=== PATIENT | female | born 1960 | race Caucasian/White ===

== ENCOUNTER 2022-12-06 15:47 | Inpatient (IN) | payer OTHER ==
[2022-12-06] MEDS ORDERED: Ketorolac 30 MG/ML SDV IVPUSH PRN (15:58)
[2022-12-06] MEDS ORDERED: Doxycycline 100 MG in Sodium Chloride 0.9% 100 ML IV SCH (16:00)
[2022-12-06 17:03] LABS: LACTIC ACID 2.1 mmol/L (0.4-2.0)
[2022-12-06] MEDS: Sodium Chloride 0.9% 10 ML Syringe FLUSH PRN (17:10)
[2022-12-06] MEDS: Sodium Chloride 0.9% 1,000 ML IV SCH (17:10)
[2022-12-06] MEDS: Doxycycline 100 MG in Sodium Chloride 0.9% 100 ML IV SCH (17:33)
[2022-12-06] MEDS: Enoxaparin 40 MG/0.4 ML Syringe SUBCUT SCH (17:33)
[2022-12-06] MEDS: Acetaminophen 325 MG Tab PO PRN ×2 (17:42→22:29)
[2022-12-07] MEDS: Sodium Chloride 0.9% 1,000 ML IV SCH (02:24)
[2022-12-07] MEDS: Acetaminophen 325 MG Tab PO PRN ×2 (03:39→09:15)
[2022-12-07] MEDS: Doxycycline 100 MG in Sodium Chloride 0.9% 100 ML IV SCH ×2 (06:25→18:30)
[2022-12-07] MEDS: Pantoprazole 20 MG Tab, Delayed Release PO SCH (06:31)
[2022-12-07 06:41] LABS: HEMOGLOBIN 12.5 g/dL (11.4-15.5); MEAN CORPUSCULAR HEMOGLOBIN 33.3 pg (23.9-33.9); MEAN CORPUSCULAR HGB CONC 33.8 g/dL (31.9-34.8); MEAN CORPUSCULAR VOLUME 98.3 fL (76.7-100.5); MEAN PLATELET VOLUME 8.2 fL (7.1-12.4); PLATELET COUNT,PLT 223 x10(3)uL (151-488); RED BLOOD CELL COUNT 3.76 x10(6)uL (3.60-5.20); RED CELL DISTRIBUTION WIDTH 13.4 % (12.3-16.5); WHITE BLOOD CELL COUNT,WBC 18.1 x10-3/uL (3.0-10.3)
[2022-12-07 06:49] LABS: BLOOD UREA NITROGEN,BUN 15 mg/dL (7-18); CALCIUM 8.5 mg/dL (8.6-10.2); CARBON DIOXIDE,CO2 25 mmol/L (21-32); CHLORIDE,CL 101 mmol/L (100-110); EST CRCL DRUG DOSING (CG) 51.14 mL/min; ESTIMATED GFR 63 mL/min (>60); GLUCOSE RANDOM 149 mg/dL (80-116); POTASSIUM,K 3.5 mmol/L (3.5-5.3); SODIUM,NA 136 mmol/L (135-145)
[2022-12-07 07:15] LABS: BAND PERCENT MAN 7 % (0-6); LYMPHOCYTES PERCENT MAN 8 % (13-37); MONOCYTES PERCENT MAN 3 % (4-12); SEG NEUTROPHILS PERCENT MAN 82 % (46-82)
[2022-12-07] MEDS: Ibuprofen 400 MG Tab PO PRN ×4 (08:13→22:39)
[2022-12-07] MEDS: Pravastatin 20 MG Tab PO SCH (08:22)
[2022-12-07] MEDS: Folic Acid 1 MG Tab PO SCH (08:22)
[2022-12-07] MEDS: Enoxaparin 40 MG/0.4 ML Syringe SUBCUT SCH (16:02)
[2022-12-07] MEDS: Sodium Chloride 0.9% 10 ML Syringe FLUSH PRN ×2 (16:05→18:30)
[2022-12-08] MEDS: Sodium Chloride 0.9% 10 ML Syringe FLUSH PRN ×4 (06:00→22:11)
[2022-12-08] MEDS: Doxycycline 100 MG in Sodium Chloride 0.9% 100 ML IV SCH (06:02)
[2022-12-08] MEDS: Ibuprofen 400 MG Tab PO PRN ×2 (06:27→10:27)
[2022-12-08 06:53] LABS: BASOPHILS ABSOLUTE AUTO 0.1 x10-3/uL (0.0-0.1); BASOPHILS PERCENT AUTO 0.4 % (0.2-1.5); EOSINOPHILS ABSOLUTE AUTO 0.2 x10-3/uL (0.0-0.8); EOSINOPHILS PERCENT AUTO 1.3 % (0.6-8.1); HEMOGLOBIN 12.6 g/dL (11.4-15.5); LYMPHOCYTES ABSOLUTE AUTO 0.9 x10-3/uL (1.0-4.4); LYMPHOCYTES PERCENT AUTO 7.1 % (18.4-52.1); MEAN CORPUSCULAR HEMOGLOBIN 33.6 pg (23.9-33.9); MEAN CORPUSCULAR HGB CONC 34.1 g/dL (31.9-34.8); MEAN CORPUSCULAR VOLUME 98.5 fL (76.7-100.5); MEAN PLATELET VOLUME 8.5 fL (7.1-12.4); MONOCYTES ABSOLUTE AUTO 0.8 x10-3/uL (0.3-1.0); NEUTROPHILS PERCENT AUTO 85.2 % (30.8-76.2); PLATELET COUNT,PLT 210 x10(3)uL (151-488); RED BLOOD CELL COUNT 3.76 x10(6)uL (3.60-5.20); RED CELL DISTRIBUTION WIDTH 13.3 % (12.3-16.5); WHITE BLOOD CELL COUNT,WBC 12.9 x10-3/uL (3.0-10.3)
[2022-12-08 07:01] LABS: BLOOD UREA NITROGEN,BUN 12 mg/dL (7-18); BUN/CREATININE RATIO 13.3 (9-20); CALCIUM 9.1 mg/dL (8.6-10.2); CARBON DIOXIDE,CO2 25 mmol/L (21-32); CHLORIDE,CL 105 mmol/L (100-110); CREATININE 0.9 mg/dL (0.55-1.02); EST CRCL DRUG DOSING (CG) 56.82 mL/min; ESTIMATED GFR 71 mL/min (>60); GLUCOSE RANDOM 141 mg/dL (80-116); POTASSIUM,K 3.5 mmol/L (3.5-5.3); SODIUM,NA 141 mmol/L (135-145)
[2022-12-08] MEDS: Pantoprazole 20 MG Tab, Delayed Release PO SCH (07:45)
[2022-12-08] MEDS: Folic Acid 1 MG Tab PO SCH (08:29)
[2022-12-08] MEDS: Pravastatin 20 MG Tab PO SCH (08:29)
[2022-12-08] MEDS: cefTRIAXone 1 GM Vial IVPUSH SCH ×2 (11:04→22:03)
[2022-12-08] MEDS: Acetaminophen 325 MG Tab PO PRN (12:44)
[2022-12-08] MEDS: Saccharomyces Boulardii (Probiotic) 250 MG Cap PO SCH ×2 (13:39→20:04)
[2022-12-08] MEDS: oxyCODONE 5 MG Tab PO PRN ×2 (13:39→22:29)
[2022-12-08] MEDS: Enoxaparin 40 MG/0.4 ML Syringe SUBCUT SCH (15:39)
[2022-12-08] MEDS ORDERED: Iopamidol 755 Mg/ML 100 ML Bottle IV ONE (16:43)
[2022-12-08] MEDS: Ibuprofen 800 MG Tab PO PRN (19:54)
[2022-12-09] MEDS: Sodium Chloride 0.9% 10 ML Syringe FLUSH PRN ×4 (03:30→22:25)
[2022-12-09] MEDS: oxyCODONE 5 MG Tab PO PRN ×2 (03:35→15:45)
[2022-12-09] MEDS: Pantoprazole 20 MG Tab, Delayed Release PO SCH (06:38)
[2022-12-09 06:50] LABS: BASOPHILS PERCENT AUTO 0.2 % (0.2-1.5); EOSINOPHILS ABSOLUTE AUTO 0.6 x10-3/uL (0.0-0.8); EOSINOPHILS PERCENT AUTO 4.5 % (0.6-8.1); HEMATOCRIT 34.7 % (34.2-48.2); HEMOGLOBIN 11.8 g/dL (11.4-15.5); LYMPHOCYTES ABSOLUTE AUTO 1.2 x10-3/uL (1.0-4.4); LYMPHOCYTES PERCENT AUTO 8.8 % (18.4-52.1); MEAN CORPUSCULAR HEMOGLOBIN 33.4 pg (23.9-33.9); MEAN CORPUSCULAR HGB CONC 34.1 g/dL (31.9-34.8); MEAN CORPUSCULAR VOLUME 97.9 fL (76.7-100.5); MEAN PLATELET VOLUME 8.1 fL (7.1-12.4); MONOCYTES ABSOLUTE AUTO 1.2 x10-3/uL (0.3-1.0); MONOCYTES PERCENT AUTO 8.6 % (4.4-15.7); NEUTROPHILS ABSOLUTE AUTO 10.4 x10-3/uL (1.5-6.3); NEUTROPHILS PERCENT AUTO 77.9 % (30.8-76.2); PLATELET COUNT,PLT 220 x10(3)uL (151-488); RED BLOOD CELL COUNT 3.54 x10(6)uL (3.60-5.20); RED CELL DISTRIBUTION WIDTH 13.7 % (12.3-16.5); WHITE BLOOD CELL COUNT,WBC 13.4 x10-3/uL (3.0-10.3)
[2022-12-09] MEDS: Folic Acid 1 MG Tab PO SCH (08:30)
[2022-12-09] MEDS: Saccharomyces Boulardii (Probiotic) 250 MG Cap PO SCH ×2 (08:30→21:03)
[2022-12-09] MEDS: Pravastatin 20 MG Tab PO SCH (08:31)
[2022-12-09] MEDS: Ibuprofen 800 MG Tab PO PRN ×2 (09:00→22:55)
[2022-12-09] MEDS: cefTRIAXone 1 GM Vial IVPUSH SCH ×2 (10:43→22:20)
[2022-12-09] MEDS: Cetirizine 10 MG Tab PO SCH (10:47)
[2022-12-09] MEDS: Enoxaparin 40 MG/0.4 ML Syringe SUBCUT SCH (15:46)
[2022-12-09] MEDS: Acetaminophen 325 MG Tab PO PRN (18:50)
[2022-12-10] MEDS: Acetaminophen 325 MG Tab PO PRN ×2 (03:12→22:22)
[2022-12-10] MEDS: Sodium Chloride 0.9% 10 ML Syringe FLUSH PRN ×6 (03:36→22:20)
[2022-12-10] MEDS: Pantoprazole 20 MG Tab, Delayed Release PO SCH (06:30)
[2022-12-10 06:54] LABS: HEMATOCRIT 34.5 % (34.2-48.2); HEMOGLOBIN 11.7 g/dL (11.4-15.5); MEAN CORPUSCULAR HEMOGLOBIN 33.1 pg (23.9-33.9); MEAN CORPUSCULAR VOLUME 97.4 fL (76.7-100.5); MEAN PLATELET VOLUME 7.9 fL (7.1-12.4); PLATELET COUNT,PLT 260 x10(3)uL (151-488); RED BLOOD CELL COUNT 3.55 x10(6)uL (3.60-5.20); RED CELL DISTRIBUTION WIDTH 13.5 % (12.3-16.5)
[2022-12-10 07:21] LABS: EOSINOPHILS PERCENT MAN 3 % (0-5); LYMPHOCYTES PERCENT MAN 13 % (13-37); MONOCYTES PERCENT MAN 4 % (4-12); SEG NEUTROPHILS PERCENT MAN 80 % (46-82)
[2022-12-10] MEDS: Folic Acid 1 MG Tab PO SCH (08:50)
[2022-12-10] MEDS: Pravastatin 20 MG Tab PO SCH (08:51)
[2022-12-10] MEDS: Cetirizine 10 MG Tab PO SCH (08:52)
[2022-12-10] MEDS: Saccharomyces Boulardii (Probiotic) 250 MG Cap PO SCH ×2 (08:53→21:02)
[2022-12-10] MEDS: oxyCODONE 5 MG Tab PO PRN ×2 (08:54→13:32)
[2022-12-10] MEDS: cefTRIAXone 1 GM Vial IVPUSH SCH ×2 (10:50→22:10)
[2022-12-10] MEDS: Triamcinolone Acetonide 0.1% Crm 80 GM Tube TOP SCH ×2 (13:31→21:02)
[2022-12-10] MEDS: Ibuprofen 800 MG Tab PO PRN (18:13)
[2022-12-10] MEDS: Enoxaparin 40 MG/0.4 ML Syringe SUBCUT SCH (18:21)
[2022-12-11] MEDS: Sodium Chloride 0.9% 10 ML Syringe FLUSH PRN ×2 (03:40→22:42)
[2022-12-11 06:44] LABS: HEMATOCRIT 36.4 % (34.2-48.2); HEMOGLOBIN 12.4 g/dL (11.4-15.5); MEAN CORPUSCULAR HEMOGLOBIN 33.3 pg (23.9-33.9); MEAN CORPUSCULAR HGB CONC 34.1 g/dL (31.9-34.8); MEAN CORPUSCULAR VOLUME 97.6 fL (76.7-100.5); MEAN PLATELET VOLUME 7.6 fL (7.1-12.4); PLATELET COUNT,PLT 311 x10(3)uL (151-488); RED BLOOD CELL COUNT 3.73 x10(6)uL (3.60-5.20); RED CELL DISTRIBUTION WIDTH 13.8 % (12.3-16.5); WHITE BLOOD CELL COUNT,WBC 14.3 x10-3/uL (3.0-10.3)
[2022-12-11 07:02] LABS: LYMPHOCYTES PERCENT MAN 15 % (13-37); SEG NEUTROPHILS PERCENT MAN 72 % (46-82)
[2022-12-11 07:03] LABS: EOSINOPHILS PERCENT MAN 4 % (0-5); MONOCYTES PERCENT MAN 9 % (4-12); NRBC MANUAL 1 /100WBC (0-0)
[2022-12-11] MEDS: Pantoprazole 20 MG Tab, Delayed Release PO SCH (07:03)
[2022-12-11] MEDS: oxyCODONE 5 MG Tab PO PRN ×3 (08:04→18:08)
[2022-12-11] MEDS: Triamcinolone Acetonide 0.1% Crm 80 GM Tube TOP SCH ×2 (08:05→21:48)
[2022-12-11] MEDS: Cetirizine 10 MG Tab PO SCH (08:06)
[2022-12-11] MEDS: Pravastatin 20 MG Tab PO SCH (08:06)
[2022-12-11] MEDS: Saccharomyces Boulardii (Probiotic) 250 MG Cap PO SCH ×2 (08:06→21:47)
[2022-12-11] MEDS: Folic Acid 1 MG Tab PO SCH (08:06)
[2022-12-11] MEDS: Ibuprofen 800 MG Tab PO PRN ×2 (08:30→17:54)
[2022-12-11] MEDS: cefTRIAXone 1 GM Vial IVPUSH SCH ×2 (11:10→22:37)
[2022-12-11] MEDS: Enoxaparin 40 MG/0.4 ML Syringe SUBCUT SCH ×2 (11:50→18:08)
[2022-12-11] MEDS: Acetaminophen 325 MG Tab PO PRN ×2 (12:32→22:05)
[2022-12-12] MEDS: Pantoprazole 20 MG Tab, Delayed Release PO SCH (06:32)
[2022-12-12 07:13] LABS: HEMATOCRIT 34.5 % (34.2-48.2); HEMOGLOBIN 11.8 g/dL (11.4-15.5); MEAN CORPUSCULAR HEMOGLOBIN 33.2 pg (23.9-33.9); MEAN CORPUSCULAR HGB CONC 34.1 g/dL (31.9-34.8); MEAN CORPUSCULAR VOLUME 97.3 fL (76.7-100.5); MEAN PLATELET VOLUME 7.7 fL (7.1-12.4); PLATELET COUNT,PLT 322 x10(3)uL (151-488); RED BLOOD CELL COUNT 3.55 x10(6)uL (3.60-5.20); RED CELL DISTRIBUTION WIDTH 13.6 % (12.3-16.5); WHITE BLOOD CELL COUNT,WBC 12.1 x10-3/uL (3.0-10.3)
[2022-12-12 07:39] LABS: BAND PERCENT MAN 2 % (0-6); EOSINOPHILS PERCENT MAN 4 % (0-5); LYMPHOCYTES PERCENT MAN 15 % (13-37); METAMYELOCYTE PERCENT MAN 1 % (0-0); MONOCYTES PERCENT MAN 3 % (4-12); SEG NEUTROPHILS PERCENT MAN 75 % (46-82)
[2022-12-12] MEDS: oxyCODONE 5 MG Tab PO PRN ×3 (07:43→21:01)
[2022-12-12] MEDS: Ibuprofen 800 MG Tab PO PRN ×2 (07:44→21:00)
[2022-12-12] MEDS: Folic Acid 1 MG Tab PO SCH (08:32)
[2022-12-12] MEDS: Cetirizine 10 MG Tab PO SCH (08:32)
[2022-12-12] MEDS: Pravastatin 20 MG Tab PO SCH (08:33)
[2022-12-12] MEDS: Saccharomyces Boulardii (Probiotic) 250 MG Cap PO SCH ×2 (08:34→21:03)
[2022-12-12] MEDS: Triamcinolone Acetonide 0.1% Crm 80 GM Tube TOP SCH ×2 (08:35→21:02)
[2022-12-12] MEDS: cefTRIAXone 1 GM Vial IVPUSH SCH ×2 (10:52→22:37)
[2022-12-12] MEDS: Acetaminophen 325 MG Tab PO PRN (14:05)
[2022-12-12] MEDS: Enoxaparin 40 MG/0.4 ML Syringe SUBCUT SCH (19:29)
[2022-12-12] MEDS: Sodium Chloride 0.9% 10 ML Syringe FLUSH PRN ×3 (21:37→22:43)
[2022-12-13] MEDS: Ibuprofen 800 MG Tab PO PRN ×3 (06:25→22:28)
[2022-12-13] MEDS: oxyCODONE 5 MG Tab PO PRN ×3 (06:26→22:27)
[2022-12-13] MEDS: Pantoprazole 20 MG Tab, Delayed Release PO SCH (06:29)
[2022-12-13 07:05] LABS: BASOPHILS ABSOLUTE AUTO 0.1 x10-3/uL (0.0-0.1); BASOPHILS PERCENT AUTO 0.5 % (0.2-1.5); EOSINOPHILS ABSOLUTE AUTO 0.7 x10-3/uL (0.0-0.8); EOSINOPHILS PERCENT AUTO 5.5 % (0.6-8.1); HEMATOCRIT 37.9 % (34.2-48.2); LYMPHOCYTES ABSOLUTE AUTO 1.7 x10-3/uL (1.0-4.4); LYMPHOCYTES PERCENT AUTO 14.7 % (18.4-52.1); MEAN CORPUSCULAR HEMOGLOBIN 33.2 pg (23.9-33.9); MEAN CORPUSCULAR HGB CONC 34.2 g/dL (31.9-34.8); MEAN CORPUSCULAR VOLUME 97.1 fL (76.7-100.5); MEAN PLATELET VOLUME 7.8 fL (7.1-12.4); MONOCYTES ABSOLUTE AUTO 0.9 x10-3/uL (0.3-1.0); NEUTROPHILS ABSOLUTE AUTO 8.4 x10-3/uL (1.5-6.3); NEUTROPHILS PERCENT AUTO 71.3 % (30.8-76.2); PLATELET COUNT,PLT 355 x10(3)uL (151-488); RED BLOOD CELL COUNT 3.91 x10(6)uL (3.60-5.20); RED CELL DISTRIBUTION WIDTH 13.6 % (12.3-16.5); WHITE BLOOD CELL COUNT,WBC 11.8 x10-3/uL (3.0-10.3)
[2022-12-13] MEDS ORDERED: Furosemide 40 MG Tab PO ONE (09:55)
[2022-12-13] MEDS: Pravastatin 20 MG Tab PO SCH (10:02)
[2022-12-13] MEDS: Triamcinolone Acetonide 0.1% Crm 80 GM Tube TOP SCH ×2 (10:02→21:46)
[2022-12-13] MEDS: Folic Acid 1 MG Tab PO SCH (10:02)
[2022-12-13] MEDS: Saccharomyces Boulardii (Probiotic) 250 MG Cap PO SCH ×2 (10:02→21:46)
[2022-12-13] MEDS: Cetirizine 10 MG Tab PO SCH (10:04)
[2022-12-13] MEDS: cefTRIAXone 1 GM Vial IVPUSH SCH ×2 (10:04→21:57)
[2022-12-13] MEDS: Sodium Chloride 0.9% 10 ML Syringe FLUSH PRN ×2 (10:06→21:57)
[2022-12-13] MEDS: Acetaminophen 325 MG Tab PO PRN (12:47)
[2022-12-13] MEDS: Enoxaparin 40 MG/0.4 ML Syringe SUBCUT SCH (18:09)
[2022-12-14] MEDS: Pantoprazole 20 MG Tab, Delayed Release PO SCH (06:41)
[2022-12-14] MEDS: oxyCODONE 5 MG Tab PO PRN ×3 (06:41→23:02)
[2022-12-14] MEDS: Ibuprofen 800 MG Tab PO PRN ×3 (06:42→23:02)
[2022-12-14 07:20] LABS: HEMATOCRIT 37.4 % (34.2-48.2); HEMOGLOBIN 12.7 g/dL (11.4-15.5); MEAN CORPUSCULAR HEMOGLOBIN 33.4 pg (23.9-33.9); MEAN CORPUSCULAR VOLUME 98.1 fL (76.7-100.5); MEAN PLATELET VOLUME 7.2 fL (7.1-12.4); PLATELET COUNT,PLT 431 x10(3)uL (151-488); RED BLOOD CELL COUNT 3.81 x10(6)uL (3.60-5.20); RED CELL DISTRIBUTION WIDTH 13.6 % (12.3-16.5); WHITE BLOOD CELL COUNT,WBC 11.8 x10-3/uL (3.0-10.3)
[2022-12-14 07:23] LABS: BLOOD UREA NITROGEN,BUN 12 mg/dL (7-18); CARBON DIOXIDE,CO2 33 mmol/L (21-32); CHLORIDE,CL 101 mmol/L (100-110); CREATININE 0.8 mg/dL (0.55-1.02); EST CRCL DRUG DOSING (CG) 63.93 mL/min; ESTIMATED GFR 82 mL/min (>60); GLUCOSE RANDOM 117 mg/dL (80-116); POTASSIUM,K 3.6 mmol/L (3.5-5.3); SODIUM,NA 138 mmol/L (135-145)
[2022-12-14 07:55] LABS: BAND PERCENT MAN 4 % (0-6); LYMPHOCYTES PERCENT MAN 11 % (13-37); MONOCYTES PERCENT MAN 10 % (4-12); SEG NEUTROPHILS PERCENT MAN 75 % (46-82)
[2022-12-14] MEDS: Folic Acid 1 MG Tab PO SCH (08:22)
[2022-12-14] MEDS: Cetirizine 10 MG Tab PO SCH (08:22)
[2022-12-14] MEDS: Pravastatin 20 MG Tab PO SCH (08:22)
[2022-12-14] MEDS: Saccharomyces Boulardii (Probiotic) 250 MG Cap PO SCH ×2 (08:22→21:43)
[2022-12-14] MEDS: Triamcinolone Acetonide 0.1% Crm 80 GM Tube TOP SCH ×2 (08:23→21:44)
[2022-12-14] MEDS: Sodium Chloride 0.9% 10 ML Syringe FLUSH PRN ×4 (10:09→21:56)
[2022-12-14] MEDS: cefTRIAXone 1 GM Vial IVPUSH SCH ×2 (10:12→21:57)
[2022-12-14] MEDS ORDERED: Furosemide 40 MG/4 ML VIAL IVPUSH ONE (11:01)
[2022-12-14] MEDS ORDERED: Furosemide 20 MG/2 ML VIAL IVPUSH ONE (11:02)
[2022-12-14] MEDS: Enoxaparin 40 MG/0.4 ML Syringe SUBCUT SCH (18:16)
[2022-12-15] MEDS: Pantoprazole 20 MG Tab, Delayed Release PO SCH (06:31)
[2022-12-15 07:01] LABS: BASOPHILS PERCENT AUTO 0.4 % (0.2-1.5); EOSINOPHILS ABSOLUTE AUTO 0.4 x10-3/uL (0.0-0.8); EOSINOPHILS PERCENT AUTO 4.6 % (0.6-8.1); HEMATOCRIT 36.9 % (34.2-48.2); HEMOGLOBIN 12.4 g/dL (11.4-15.5); LYMPHOCYTES ABSOLUTE AUTO 1.5 x10-3/uL (1.0-4.4); LYMPHOCYTES PERCENT AUTO 16.4 % (18.4-52.1); MEAN CORPUSCULAR HEMOGLOBIN 32.9 pg (23.9-33.9); MEAN CORPUSCULAR HGB CONC 33.6 g/dL (31.9-34.8); MEAN PLATELET VOLUME 7.3 fL (7.1-12.4); MONOCYTES PERCENT AUTO 10.9 % (4.4-15.7); NEUTROPHILS ABSOLUTE AUTO 6.1 x10-3/uL (1.5-6.3); NEUTROPHILS PERCENT AUTO 67.7 % (30.8-76.2); PLATELET COUNT,PLT 459 x10(3)uL (151-488); RED BLOOD CELL COUNT 3.77 x10(6)uL (3.60-5.20); RED CELL DISTRIBUTION WIDTH 13.4 % (12.3-16.5)
[2022-12-15] MEDS: Cetirizine 10 MG Tab PO SCH (08:41)
[2022-12-15] MEDS: Pravastatin 20 MG Tab PO SCH (08:41)
[2022-12-15] MEDS: Saccharomyces Boulardii (Probiotic) 250 MG Cap PO SCH ×2 (08:41→22:08)
[2022-12-15] MEDS: Triamcinolone Acetonide 0.1% Crm 80 GM Tube TOP SCH ×2 (08:41→22:08)
[2022-12-15] MEDS: Folic Acid 1 MG Tab PO SCH (08:41)
[2022-12-15] MEDS: Cefdinir 300 MG Cap PO SCH ×2 (08:47→22:09)
[2022-12-15] MEDS: oxyCODONE 5 MG Tab PO PRN ×3 (08:47→22:17)
[2022-12-15] MEDS: Ibuprofen 800 MG Tab PO PRN ×2 (08:48→22:16)
[2022-12-15] MEDS: Acetaminophen 325 MG Tab PO PRN (13:57)
[2022-12-15] MEDS: Enoxaparin 40 MG/0.4 ML Syringe SUBCUT SCH (19:38)
[2022-12-16] MEDS: Ibuprofen 800 MG Tab PO PRN (06:19)
[2022-12-16] MEDS: Pantoprazole 20 MG Tab, Delayed Release PO SCH (06:38)
[2022-12-16] MEDS: Saccharomyces Boulardii (Probiotic) 250 MG Cap PO SCH (08:46)
[2022-12-16] MEDS: Cetirizine 10 MG Tab PO SCH (08:47)
[2022-12-16] MEDS: Cefdinir 300 MG Cap PO SCH (08:47)
[2022-12-16] MEDS: Triamcinolone Acetonide 0.1% Crm 80 GM Tube TOP SCH (08:48)
[2022-12-16] MEDS: Folic Acid 1 MG Tab PO SCH (08:48)
[2022-12-16] MEDS: Pravastatin 20 MG Tab PO SCH (08:51)
== END 2022-12-16 09:30 | disposition home or self-care (01) | DRG 872 ==
LOC: FB.MS 15:47
PROVIDERS: ADMIT Family Medicine; ATTEND Family Medicine
DX: A41.9 Sepsis, unspecified organism (principal); D84.821 Immunodeficiency due to drugs; N17.9 Acute kidney failure, unspecified; L03.115 Cellulitis of right lower limb; M06.09 Rheumatoid arthritis without rheumatoid factor, multiple sites; E78.2 Mixed hyperlipidemia; K21.9 Gastro-esophageal reflux disease without esophagitis; G62.9 Polyneuropathy, unspecified; E86.0 Dehydration; E78.00 Pure hypercholesterolemia, unspecified; L20.9 Atopic dermatitis, unspecified; K29.70 Gastritis, unspecified, without bleeding; Z79.899 Other long term (current) drug therapy; Z90.89 Acquired absence of other organs; Z98.890 Other specified postprocedural states
CPT/HCPCS: 36410; 36415; 73701-RT; 80048; 83605; 85025; 86140; 87040; 93971-RT; 99222; 99232; 99238; A9270-GY; J0696; J1650; J1940; J3490; J7030; Q9967